=== PATIENT | male | born 1940 | race Caucasian/White ===

== ENCOUNTER 2018-01-02 17:14 | Inpatient (IN) | payer MEDICARE ==
[~2018-01-02] VITALS: Ht 177.8 cm; Wt 163.1 kg
[~2018-01-02 17:14] MED LIST: ACYC200 PO; ALBU90OI INH; BUDE10.22; DIPH50 PO; GABA600 PO; HYDCHL25 PO; LORA10 PO; LOSA50 PO; TAMS.4ER PO
[2018-01-02] MEDS ORDERED: MELA3 PO (17:33)
[2018-01-02] MEDS ORDERED: ASPI81CH PO (17:33)
[2018-01-02] MEDS ORDERED: TRAZ50 PO (17:33)
[2018-01-02 18:28] LABS: BASOPHILS ABSOLUTE AUTO 0.03 K/mm3 (0.00-0.23); BASOPHILS PERCENT AUTO 0 % (0-2); EOSINOPHILS ABSOLUTE AUTO 0.03 K/mm3 (0.00-0.68); EOSINOPHILS PERCENT AUTO 0 % (0-6); Hematocrit 41.6 % (37.0-53.0); Hemoglobin 14.8 g/dL (13.5-17.5); IMMATURE GRAN ABSOLUTE AUTO 0.08 K/mm3 (0.00-0.10); IMMATURE GRAN PERCENT AUTO 1 % (0-1); LYMPHOCYTES ABSOLUTE AUTO 1.97 K/mm3 (0.84-5.20); LYMPHOCYTES PERCENT AUTO 12 % (21-46); MONOCYTES ABSOLUTE AUTO 1.49 K/mm3 (0.16-1.47); MONOCYTES PERCENT AUTO 9 % (4-13); Mean Corpuscular HGB 32.2 pg (26.0-34.0); Mean Corpuscular HGB Conc 35.6 g/dL (31.5-36.5); Mean Corpuscular Volume 90 fL (80-100); Mean Platelet Volume 8.6 fL (9.1-12.4); NEUTROPHILS ABSOLUTE AUTO 12.42 K/mm3 (1.96-9.15); NEUTROPHILS PERCENT AUTO 78 % (41-73); Platelet Count 337 K/mm3 (150-400); RDW Coefficient Variation 13.1 % (11.7-14.2); RDW Standard Deviation 43.8 fL (35.1-46.3); White Blood Cell Count 16.02 K/mm3 (4.00-11.30)
[2018-01-02 18:42] LABS: Alanine Aminotransfer (ALT/SGP 26 U/L (12-78); Albumin, Blood 3.7 g/dL (3.4-5.0); Albumin/Globulin Ratio 0.9 (0.8-1.8); Alk Phos 64 U/L (50-136); Anion Gap 9 mmol/L (6-16); Aspartate Aminotrans (AST/SGOT 17 U/L (12-37); Bilirubin, Total 0.7 mg/dL (0.1-1.0); Blood Urea Nitrogen 18 mg/dL (8-24); Bun/Creatinine Ratio 19.5 (12.0-20.0); CO2, Blood 28 mmol/L (21-32); Chloride, Blood 101 mmol/L (98-108); Creatinine, Blood 0.92 mg/dL (0.60-1.20); Glomerular Filtration Rate >60 (60-); Glucose, Blood 140 mg/dL (70-99); Potassium, Blood 3.8 mmol/L (3.5-5.5); Sodium, Blood 138 mmol/L (136-145); Total Protein, Blood 7.7 g/dL (6.4-8.2)
[2018-01-02] MEDS ORDERED: Advil200 M1 PO (20:41)
[2018-01-02] MEDS ORDERED: ASCO500 PO (20:42)
[2018-01-02] MEDS ORDERED: MUCUS RELIEF C200 MG PO (20:43)
[2018-01-02] MEDS ORDERED: TRIPLE FLEX CA1 EACH PO (20:43)
[2018-01-03 04:27] LABS: BASOPHILS ABSOLUTE AUTO 0.02 K/mm3 (0.00-0.23); BASOPHILS PERCENT AUTO 0 % (0-2); EOSINOPHILS ABSOLUTE AUTO 0.01 K/mm3 (0.00-0.68); EOSINOPHILS PERCENT AUTO 0 % (0-6); Hematocrit 41.5 % (37.0-53.0); Hemoglobin 14.6 g/dL (13.5-17.5); IMMATURE GRAN ABSOLUTE AUTO 0.15 K/mm3 (0.00-0.10); IMMATURE GRAN PERCENT AUTO 1 % (0-1); LYMPHOCYTES ABSOLUTE AUTO 1.43 K/mm3 (0.84-5.20); LYMPHOCYTES PERCENT AUTO 8 % (21-46); MONOCYTES ABSOLUTE AUTO 1.87 K/mm3 (0.16-1.47); MONOCYTES PERCENT AUTO 10 % (4-13); Mean Corpuscular HGB 31.7 pg (26.0-34.0); Mean Corpuscular HGB Conc 35.2 g/dL (31.5-36.5); Mean Corpuscular Volume 90 fL (80-100); Mean Platelet Volume 8.8 fL (9.1-12.4); NEUTROPHILS ABSOLUTE AUTO 14.91 K/mm3 (1.96-9.15); NEUTROPHILS PERCENT AUTO 81 % (41-73); Platelet Count 327 K/mm3 (150-400); RDW Coefficient Variation 12.8 % (11.7-14.2); RDW Standard Deviation 42.5 fL (35.1-46.3); White Blood Cell Count 18.39 K/mm3 (4.00-11.30)
[2018-01-03 04:35] LABS: Anion Gap 9 mmol/L (6-16); Blood Urea Nitrogen 13 mg/dL (8-24); Bun/Creatinine Ratio 15.2 (12.0-20.0); CO2, Blood 27 mmol/L (21-32); Calcium, Blood 8.2 mg/dL (8.5-10.1); Chloride, Blood 101 mmol/L (98-108); Creatinine, Blood 0.85 mg/dL (0.60-1.20); Glomerular Filtration Rate >60 (60-); Glucose, Blood 150 mg/dL (70-99); Potassium, Blood 3.8 mmol/L (3.5-5.5); Sodium, Blood 137 mmol/L (136-145)
[2018-01-04 09:37] LABS: BASOPHILS ABSOLUTE AUTO 0.02 K/mm3 (0.00-0.23); BASOPHILS PERCENT AUTO 0 % (0-2); EOSINOPHILS ABSOLUTE AUTO 0.01 K/mm3 (0.00-0.68); EOSINOPHILS PERCENT AUTO 0 % (0-6); Hematocrit 36.2 % (37.0-53.0); Hemoglobin 12.7 g/dL (13.5-17.5); IMMATURE GRAN PERCENT AUTO 1 % (0-1); LYMPHOCYTES ABSOLUTE AUTO 1.83 K/mm3 (0.84-5.20); LYMPHOCYTES PERCENT AUTO 9 % (21-46); MONOCYTES ABSOLUTE AUTO 1.42 K/mm3 (0.16-1.47); MONOCYTES PERCENT AUTO 7 % (4-13); Mean Corpuscular HGB 31.9 pg (26.0-34.0); Mean Corpuscular HGB Conc 35.1 g/dL (31.5-36.5); Mean Corpuscular Volume 91 fL (80-100); Mean Platelet Volume 8.8 fL (9.1-12.4); NEUTROPHILS ABSOLUTE AUTO 17.49 K/mm3 (1.96-9.15); NEUTROPHILS PERCENT AUTO 83 % (41-73); Platelet Count 303 K/mm3 (150-400); RDW Coefficient Variation 13.2 % (11.7-14.2); RDW Standard Deviation 44.2 fL (35.1-46.3); Red Blood Cell Count 3.98 M/mm3 (4.30-5.90); White Blood Cell Count 20.97 K/mm3 (4.00-11.30)
[2018-01-04 10:02] LABS: Alanine Aminotransfer (ALT/SGP 121 U/L (12-78); Albumin, Blood 2.8 g/dL (3.4-5.0); Albumin/Globulin Ratio 0.8 (0.8-1.8); Alk Phos 90 U/L (50-136); Anion Gap 9 mmol/L (6-16); Aspartate Aminotrans (AST/SGOT 70 U/L (12-37); Bilirubin, Total 0.6 mg/dL (0.1-1.0); Blood Urea Nitrogen 18 mg/dL (8-24); Bun/Creatinine Ratio 20.7 (12.0-20.0); CO2, Blood 29 mmol/L (21-32); Chloride, Blood 99 mmol/L (98-108); Creatinine, Blood 0.87 mg/dL (0.60-1.20); Globulin, Blood 3.7 g/dL (2.2-4.0); Glomerular Filtration Rate >60 (60-); Glucose, Blood 122 mg/dL (70-99); Potassium, Blood 3.6 mmol/L (3.5-5.5); Sodium, Blood 137 mmol/L (136-145); Total Protein, Blood 6.5 g/dL (6.4-8.2)
[2018-01-05 11:08] LABS: BASOPHILS ABSOLUTE AUTO 0.02 K/mm3 (0.00-0.23); BASOPHILS PERCENT AUTO 0 % (0-2); EOSINOPHILS ABSOLUTE AUTO 0.06 K/mm3 (0.00-0.68); EOSINOPHILS PERCENT AUTO 1 % (0-6); Hematocrit 36.4 % (37.0-53.0); Hemoglobin 12.9 g/dL (13.5-17.5); IMMATURE GRAN ABSOLUTE AUTO 0.07 K/mm3 (0.00-0.10); IMMATURE GRAN PERCENT AUTO 1 % (0-1); LYMPHOCYTES ABSOLUTE AUTO 2.06 K/mm3 (0.84-5.20); LYMPHOCYTES PERCENT AUTO 17 % (21-46); MONOCYTES ABSOLUTE AUTO 0.99 K/mm3 (0.16-1.47); MONOCYTES PERCENT AUTO 8 % (4-13); Mean Corpuscular HGB 31.8 pg (26.0-34.0); Mean Corpuscular HGB Conc 35.4 g/dL (31.5-36.5); Mean Corpuscular Volume 90 fL (80-100); Mean Platelet Volume 8.6 fL (9.1-12.4); NEUTROPHILS ABSOLUTE AUTO 8.92 K/mm3 (1.96-9.15); NEUTROPHILS PERCENT AUTO 74 % (41-73); Platelet Count 309 K/mm3 (150-400); RDW Standard Deviation 42.8 fL (35.1-46.3); Red Blood Cell Count 4.06 M/mm3 (4.30-5.90); White Blood Cell Count 12.12 K/mm3 (4.00-11.30)
[2018-01-05 11:24] LABS: Alanine Aminotransfer (ALT/SGP 136 U/L (12-78); Albumin, Blood 2.8 g/dL (3.4-5.0); Albumin/Globulin Ratio 0.7 (0.8-1.8); Alk Phos 136 U/L (50-136); Anion Gap 9 mmol/L (6-16); Aspartate Aminotrans (AST/SGOT 92 U/L (12-37); Bilirubin, Total 0.5 mg/dL (0.1-1.0); Blood Urea Nitrogen 20 mg/dL (8-24); Bun/Creatinine Ratio 21.4 (12.0-20.0); CO2, Blood 28 mmol/L (21-32); Calcium, Blood 8.2 mg/dL (8.5-10.1); Chloride, Blood 102 mmol/L (98-108); Creatinine, Blood 0.94 mg/dL (0.60-1.20); Globulin, Blood 4.1 g/dL (2.2-4.0); Glomerular Filtration Rate >60 (60-); Glucose, Blood 136 mg/dL (70-99); Potassium, Blood 3.4 mmol/L (3.5-5.5); Sodium, Blood 139 mmol/L (136-145); Total Protein, Blood 6.9 g/dL (6.4-8.2)
[2018-01-06 03:55] LABS: BASOPHILS ABSOLUTE AUTO 0.04 K/mm3 (0.00-0.23); BASOPHILS PERCENT AUTO 0 % (0-2); EOSINOPHILS ABSOLUTE AUTO 0.26 K/mm3 (0.00-0.68); EOSINOPHILS PERCENT AUTO 2 % (0-6); Hemoglobin 12.9 g/dL (13.5-17.5); IMMATURE GRAN ABSOLUTE AUTO 0.07 K/mm3 (0.00-0.10); IMMATURE GRAN PERCENT AUTO 1 % (0-1); LYMPHOCYTES ABSOLUTE AUTO 2.29 K/mm3 (0.84-5.20); LYMPHOCYTES PERCENT AUTO 20 % (21-46); MONOCYTES ABSOLUTE AUTO 0.93 K/mm3 (0.16-1.47); MONOCYTES PERCENT AUTO 8 % (4-13); Mean Corpuscular HGB 31.5 pg (26.0-34.0); Mean Corpuscular HGB Conc 35.8 g/dL (31.5-36.5); Mean Corpuscular Volume 88 fL (80-100); Mean Platelet Volume 8.6 fL (9.1-12.4); NEUTROPHILS ABSOLUTE AUTO 7.61 K/mm3 (1.96-9.15); NEUTROPHILS PERCENT AUTO 68 % (41-73); Platelet Count 343 K/mm3 (150-400); RDW Standard Deviation 42.1 fL (35.1-46.3); Red Blood Cell Count 4.09 M/mm3 (4.30-5.90)
[2018-01-06 04:12] LABS: Anion Gap 8 mmol/L (6-16); Blood Urea Nitrogen 15 mg/dL (8-24); CO2, Blood 28 mmol/L (21-32); Calcium, Blood 8.5 mg/dL (8.5-10.1); Chloride, Blood 103 mmol/L (98-108); Creatinine, Blood 0.84 mg/dL (0.60-1.20); Glomerular Filtration Rate >60 (60-); Glucose, Blood 102 mg/dL (70-99); Potassium, Blood 3.5 mmol/L (3.5-5.5); Sodium, Blood 139 mmol/L (136-145)
== END 2018-01-06 14:13 | disposition home or self-care (01) | DRG 418 ==
LOC: ER 17:14 → SURS 17:15 → ER 18:54 → SURS 20:03
PROVIDERS: Internal Medicine; Nurse Practitioner Acute Care; Surgery
PROC: 0FT44ZZ Resection of Gallbladder, Percutaneous Endoscopic Approach (ICD-10-PCS; principal; 2018-01-02)
DX: K81.0 Acute cholecystitis (principal); K82.1 Hydrops of gallbladder; I10 Essential (primary) hypertension; J44.9 Chronic obstructive pulmonary disease, unspecified; N40.0 Benign prostatic hyperplasia without lower urinary tract symptoms; Z85.828 Personal history of other malignant neoplasm of skin; K21.9 Gastro-esophageal reflux disease without esophagitis; R33.9 Retention of urine, unspecified; N40.1 Benign prostatic hyperplasia with lower urinary tract symptoms
CPT/HCPCS: 36415; 71045; 80048; 80053; 83690; 85025; 88304; 93005; 93010; 94640; 94760; 96365; 96375; 99285; J0295; J1100; J1885; J2250; J2405; J2710; J3010; J7030; J7120; Q0163

== ENCOUNTER 2020-09-20 20:05 | Inpatient (IN) | payer OTHER, MEDICARE ==
[~2020-09-20] VITALS: Ht 177.8 cm; Wt 80.4 kg
[~2020-09-20 20:05] MED LIST changes: +ASCO500 PO; +ASPI81CH PO; +Advil200 M1 PO; +MELA3 PO; +MUCUS RELIEF C200 MG PO; +TRAZ50 PO; +TRIPLE FLEX CA1 EACH PO
[2020-09-20] MEDS ORDERED: FINA5 PO (20:41)
[2020-09-20] MEDS ORDERED: MOME.1TO (20:41)
[2020-09-20] MEDS ORDERED: LORA10ER PO (20:41)
[2020-09-20] MEDS ORDERED: TRIA15CR3 TOP (20:42)
[2020-09-20 20:50] LABS: BASOPHILS ABSOLUTE AUTO 0.04 K/mm3 (0.00-0.23); BASOPHILS PERCENT AUTO 0 % (0-2); EOSINOPHILS ABSOLUTE AUTO 0.24 K/mm3 (0.00-0.68); EOSINOPHILS PERCENT AUTO 2 % (0-6); IMMATURE GRAN ABSOLUTE AUTO 0.04 K/mm3 (0.00-0.10); IMMATURE GRAN PERCENT AUTO 0 % (0-1); LYMPHOCYTES PERCENT AUTO 24 % (21-46); MONOCYTES ABSOLUTE AUTO 0.94 K/mm3 (0.16-1.47); MONOCYTES PERCENT AUTO 10 % (4-13); Mean Corpuscular HGB 32.6 pg (26.0-34.0); Mean Corpuscular HGB Conc 35.9 g/dL (31.5-36.5); Mean Corpuscular Volume 91 fL (80-100); Mean Platelet Volume 8.9 fL (9.1-12.4); NEUTROPHILS ABSOLUTE AUTO 6.21 K/mm3 (1.96-9.15); NEUTROPHILS PERCENT AUTO 63 % (41-73); Platelet Count 309 K/mm3 (150-400); RDW Coefficient Variation 12.7 % (11.7-14.2); RDW Standard Deviation 41.8 fL (35.1-46.3); White Blood Cell Count 9.87 K/mm3 (4.00-11.30)
[2020-09-20 21:03] LABS: Alanine Aminotransfer (ALT/SGP 28 U/L (12-78); Albumin, Blood 3.6 g/dL (3.4-5.0); Albumin/Globulin Ratio 1.1 (0.8-1.8); Alk Phos 42 U/L (50-136); Anion Gap 8 mmol/L (6-16); Aspartate Aminotrans (AST/SGOT 22 U/L (12-37); Bilirubin, Total 0.5 mg/dL (0.1-1.0); Blood Urea Nitrogen 23 mg/dL (8-24); Bun/Creatinine Ratio 22.1 (12.0-20.0); CO2, Blood 29 mmol/L (21-32); Calcium, Blood 8.7 mg/dL (8.5-10.1); Chloride, Blood 105 mmol/L (98-108); Creatinine, Blood 1.04 mg/dL (0.60-1.20); Globulin, Blood 3.2 g/dL (2.2-4.0); Glomerular Filtration Rate >60 (60-); Glucose, Blood 130 mg/dL (70-99); Potassium, Blood 3.6 mmol/L (3.5-5.5); Sodium, Blood 142 mmol/L (136-145); Total Protein, Blood 6.8 g/dL (6.4-8.2); Troponin I <0.015 ng/mL (0.000-0.040)
[2020-09-20 21:05] LABS: International Normalized Ratio 1.09; Prothrombin Time Results 11.6 Sec (9.7-11.5)
--- NOTE | 2020-09-21 00:29 | NUR ---
PATIENT ARRIVED TO ICU 12 VIA GURNEY TRANSFER TO ICU BED USING SLIDER SHEET AND PLACED ON ICU MONITORS. NICARDIPINE DRIP STARTED WITH GOAL TO LOWER BP TO SBP 120'S. PATIENT C/O ABD CRAMPING AND BACK PAIN, MORPHINE IV GIVEN WITH SOME RELIEF. PATIENT ATTEMPT TO USE URINAL IN BED WITH NO RESULTS. PATIENT SOB WITH ACTIVITY. NOT ABLE TO KOBY LAYING FLAT FOR ANY LENGTH OF TIME. SCAB TO RIGHT CHEEK AND RIGHT HAND FROM LUMPS REMOVED LAST SUNDAY AT THE [place].
[2020-09-21 02:42] LABS: Source, Urine Voided
[2020-09-21 02:44] LABS: Bilirubin, Urine Neg (Neg); Blood, Urine Neg (Neg); Glucose Qualitative, Urine Neg (Neg); Ketones, Urine Neg (Neg); Leukocyte Esterase, Urine Neg (Neg); Nitrite, Urine Neg (Neg); Protein, Urine 1+ (Neg); Urobilinogen, Urine NORM (Normal); pH, Urine 6.5 (5.0-8.0)
[2020-09-21 03:02] LABS: Appearance, Urine Clear (Clear); Color, Urine Yellow (P-Yellow)
[2020-09-21 04:03] LABS: BASOPHILS ABSOLUTE AUTO 0.02 K/mm3 (0.00-0.23); BASOPHILS PERCENT AUTO 0 % (0-2); EOSINOPHILS PERCENT AUTO 0 % (0-6); Hematocrit 39.8 % (37.0-53.0); Hemoglobin 14.3 g/dL (13.5-17.5); IMMATURE GRAN ABSOLUTE AUTO 0.05 K/mm3 (0.00-0.10); IMMATURE GRAN PERCENT AUTO 0 % (0-1); LYMPHOCYTES ABSOLUTE AUTO 1.18 K/mm3 (0.84-5.20); LYMPHOCYTES PERCENT AUTO 8 % (21-46); MONOCYTES ABSOLUTE AUTO 1.16 K/mm3 (0.16-1.47); MONOCYTES PERCENT AUTO 7 % (4-13); Mean Corpuscular HGB 32.6 pg (26.0-34.0); Mean Corpuscular HGB Conc 35.9 g/dL (31.5-36.5); Mean Corpuscular Volume 91 fL (80-100); Mean Platelet Volume 8.6 fL (9.1-12.4); NEUTROPHILS PERCENT AUTO 85 % (41-73); Platelet Count 294 K/mm3 (150-400); RDW Coefficient Variation 12.6 % (11.7-14.2); RDW Standard Deviation 41.6 fL (35.1-46.3); Red Blood Cell Count 4.38 M/mm3 (4.30-5.90); White Blood Cell Count 15.71 K/mm3 (4.00-11.30)
[2020-09-21 04:22] LABS: Anion Gap 7 mmol/L (6-16); Blood Urea Nitrogen 24 mg/dL (8-24); CO2, Blood 28 mmol/L (21-32); Calcium, Blood 8.5 mg/dL (8.5-10.1); Chloride, Blood 104 mmol/L (98-108); Creatinine, Blood 0.96 mg/dL (0.60-1.20); Glomerular Filtration Rate >60 (60-); Glucose, Blood 152 mg/dL (70-99); Potassium, Blood 4.1 mmol/L (3.5-5.5); Sodium, Blood 139 mmol/L (136-145); Troponin I 0.295 ng/mL (0.000-0.040)
[2020-09-21] MEDS ORDERED: STIOLTO RESPIMAT4 G1 INH (04:40)
[2020-09-21] MEDS ORDERED: HORIZANT600 MG PO (04:44)
[2020-09-21] MEDS ORDERED: GUAI600T33 PO (04:45)
[2020-09-21] MEDS ORDERED: MAGNESIUM OXID500 MG PO (04:46)
[2020-09-21] MEDS ORDERED: ASMANEX HFA13 G4 INH (04:50)
[2020-09-21] MEDS ORDERED: LIDO700A20 TOP (04:51)
[2020-09-21] MEDS ORDERED: TRAZ50 PO (04:53)
[2020-09-21] MEDS ORDERED: DICLOFENAC SOD100 G1 (04:53)
--- NOTE | 2020-09-21 07:35 | NUR ---
SUMMARY PATIENT REMAINS ON NICARDIPINE 2 MG/HR. SITTING UP TO SIDE OF BED FREQUENTLY TO USE URINAL, VOIDING SMALL AMT OF YELLOW URINE. PATIENT INSISTENT ON NOT PLACING A ARCEO. PATIENT C/O LEFT ARM PAIN THIS MORNING VERBALIZED IV IN THAT ARM IS VERY PAINFUL. NEW SITE OBTAINED TO RIGHT UPPER ARM AND PAINFUL SITE REMOVED. PATIENT VERBALIZED THAT HE HAS A HISTORY OF PAIN TO HIS LEFT ELBOW. PLAN TO GET AN ORDER FOR ASPERCREME WHEN THE ONCOMING DOCTOR COMES IN.
[2020-09-21 09:11] LABS: Source, Urine Catheter
[2020-09-21 09:45] LABS: Appearance, Urine Clear (Clear); Bilirubin, Urine Neg (Neg); Blood, Urine Neg (Neg); Color, Urine Yellow (P-Yellow); Glucose Qualitative, Urine Neg (Neg); Ketones, Urine Neg (Neg); Leukocyte Esterase, Urine Neg (Neg); Nitrite, Urine Neg (Neg); Protein, Urine Neg (Neg); Urobilinogen, Urine NORM (Normal)
--- NOTE | 2020-09-21 10:04 | NUR ---
PT AWAKE IN BED THIS, ALERT AND ORIENTED X3. PT C/O INTERMIT. PAIN TO MID BACK 3-4/10, AND PAIN TO LEFT ELBOW. PT STATES PAIN IS TOLERABLE AT THIS TIME. PT ATTEMPTED SEVERAL TIMES TO VOID, UNABLE TO. DR DRAKE CALLED AND GIVEN FULL UPDATE ON PT. STRAIGHT CATH USED W OVER >400CC CLEAR YELLOW U/O; SAMPLE SENT TO LAB. PT ON NICARDIPINE GTT AT 2MG/HR FOR HYPERTENSION. GTT INCREASED TO 2.5MG W GOAL TO KEEP SBP AROUND 120. PT DENIES CHEST PAIN/PRESSURE. PT DENIES SOB WORSE THAN BASELINE. PT DESATURATES INTERMIT DOWN TO 84% WHILE WIDE AWAKE. 2L O2 PLACED ON PT, SATS NOW >90%. PT HAS HX OF COPD; LUNGS ARE CLEAR BUT VERY DIMINISHED T/O. PT HAS EDEMA TO RIGHT LEG THAT IS MORE SWOLLEN THAN LEFT, DOPPLER ORDERED AND COMPLETED; NEG FOR DVT. DR DRAKE AT BEDSIDE THIS AM, PLAN IS TO TRANSITION OFF OF NICARDIPINE TO PO MEDS, AWAITING ORDERS.
--- NOTE | 2020-09-21 11:03 | NUR ---
PT'S SON'S UPDATED VIA PHONE W PT'S PERMISSION. NICARDIPINE TITRATED UP TO 3MG/HR. BP LABILE. PT RESTING IN BED. C/O SORE THROAT D/T "DRYNESS CAUSED FROM MOUTH BREATHING AT NIGHT".
--- NOTE | 2020-09-21 14:08 | NUR ---
NORVASC AND LOPRESSOR PO STARTED, WILL TITRATE NICARDIPINE GTT DOWN TOLERATED; GOAL TO KEEP SBP AT OR BELOW 120
--- NOTE | 2020-09-21 15:24 | NUR ---
DR EMERY IS THE ACCEPTING MD AT [facility]; AWAITING FOR BED ASSIGNMENT. PT'S UPDATED W PT'S PERMISSION.
--- NOTE | 2020-09-21 16:35 | NUR ---
PT C/O VERY VAUGE DISCOMFORT TO CHEST THAT IS NOW GONE AND VAUGE DISCOMFORT TO BACK 09/22. MS 2MG GIVEN. SBP AROUND 120 W NICARDIPINE GTT AT 3MG/HR.
--- NOTE | 2020-09-21 19:49 | NUR ---
PATIENT UP TO RECLINER CHAIR WITH MIN ASSIST. NICARDIPINE DRIP 3 MG/HR CONTINUES FOR BLOOD PRESSURE CONTROL. PATIENT VERBALIZED BACK PAIN BETTER IN CHAIR. VOIDING SMALL AMT YELLOW URINE, C/O SLIGHT BURN WITH URINATION AFTER ARCEO CATH REMOVED EARLIER TODAY.
--- NOTE | 2020-09-21 22:35 | NUR ---
PATIENT FEELING RESTLESS, MELATONIN AND TYLENOL GIVEN, AND BACK RUB WITH ASPERCREME GIVEN.
--- NOTE | 2020-09-21 23:04 | NUR ---
PATIENT CONTINUES TO FEEL RESTLESS WITH BACK PAIN. MORPHINE GIVEN FOR PAIN.
--- NOTE | 2020-09-21 23:39 | NUR ---
HYPOTENSIVE, PATIENT SLEEPING ON RIGHT SIDE, AWAKENS TO SLIGHT STIMULI. VERBALIZED THAT HE IS FEELING COMFORTABLE. NICARDIPINE REMAINS OFF. WILL CONTINUE TO MONITOR BP CLOSELY
--- NOTE | 2020-09-22 06:03 | NUR ---
SUMMARY PATIENT SLEEPING OFF AND ON T/O NIGHT, SLIGHTLY CONFUSED WHEN FIRST AWAKENS, REORIENT EASILY. NICARDIPINE OFF AT 2312. PATIENT CONTINUES TO VOID FREQUENT SMALL AMOUNTS OF URINE. CONTINUES TO BE SOB WITH AUDIBLE WHEEZES WITH ACTIVITY, 2L/NC IN PLACE
--- NOTE | 2020-09-22 07:15 | NUR ---
Assumed care of pt at 0700. Bedside report received from Marimar SANCHEZ. Pt A&O x 4. Answers questions. Follows commands. Verbalizes needs. Pt pleasant and cooperative with care. Pt states pain to left shoulder. Requests aspercreme. Aspercreme applied to left shoulder. Plan to give morphine if aspercreme does not control pain. Pt on 2 LPM NC. SpO2 90% or greater. Lungs clear t/o. SR-ST per monitor. BP elevated. Plan to achieve pain control and see if this helps improve blood pressure. Bed in lwoest position. Call light in reach. Pt denies need at this time.
--- NOTE | 2020-09-22 08:00 | NUR ---
Dr Wolff at bedside. Discussed BP. Plan to increase PO metoprolol from 12.5 mg to 25 mg. Provider states pt is appropriate for PCU status.
--- NOTE | 2020-09-22 12:05 | NUR ---
Pt had a mild nosebleed. Humidification added to NC. BP remains above target systolic BP of 120 despite PO blood pressure medication, pain control, and IV labetalol. Call placed to Dr Wolff. Plan to give additional 5 mg amlodipine.
--- NOTE | 2020-09-22 15:12 | NUR ---
Pt visiting with his oldest son, Blayne. Update provided. Pt and visitor deny need at this time.
--- NOTE | 2020-09-22 15:34 | NUR ---
Call placed to Dr Wolff to notify of blood pressure. Plan to start PO hydralyzine.
--- NOTE | 2020-09-22 16:00 | NUR ---
Dr Wolff in room, routinely rounding on patient. Provided update to pt's son. Plan to monitor pt with currently ordered medications, provider will hold off on making additional adjustments until tomorrow morning. Provider discusses code status with family. Pt and family plan to meet and discuss. Pt remains on 2 LPM NC. SR per monitor. BP 140-150. Plan for pt to transfer to PCU 15.
--- NOTE | 2020-09-22 16:45 | NUR ---
Pt transferred to PCU 15. Report given to Jazlyn SANCHEZ. Arrived to new room via bed accompanied by this RN. Chart, medications, and belongings transferred with patient.
--- NOTE | 2020-09-22 17:03 | NUR ---
Pleasantly conversant, cheerful gentleman arrived from ICU in bed, stood to transfer to the bed in PCU 15. Son Blayne was accompanying him. Exception to visitation made per rn charge for all of the pt's sons to come to the room for a family meeting with palliative care RN Abelino Cain to discuss code status. Sons Blayne, Dayne and Abdulaziz are here now. Pt is on 2 l /min oxygen, and is moderately dyspneic with standing and taking a couple of steps to the bed. Recovers with rest after minutes. States that this has been usual for him for the past 2 years, but that he does not wear oxygen at home. vital signs taken, blood pressure noted slightly higher than it was just before transfer from icu12. Sinus rhythm per monitor technician mahco Payan
--- NOTE | 2020-09-22 17:30 | NUR ---
Receieved call from Bedside RN Jazlyn reporting Pt and family would like to have further discussion regarding code status. Pt sitting on edge of bed upon arrival. Pt's 3 sons are at bedside. Assisted family with repositioning Pt in bed. Engaged in therapeutic discussion regarding code status. Educated on life sustaining measures of CPR including risk factors and implications. Answered questions and listened to concerns. Pt and family express appreciation and report they would like to discuss further before making a decision. Ended visit to allow Pt and family to visit. Palliative Care will remain available.
--- NOTE | 2020-09-22 18:05 | NUR ---
Spiritual care note: I met with this allen man this morning. He is non-zoroastrianism, but appeared to enjoy conversation and encouragement. He spoke at length about his marriages and expressed enormous pride in his 3 sons. He appears to understand "I could go at anytime." When asked about full code status, he said, "Well I would want them to try--once." He also stated that he would'nt "want anything traumatic and bloody" however. I gently explained how this was inconsistent with neccessary CPR and his current condition. He would like to speak to his sons about this. We had an easy rapport and Benedict expressed appreciation for companionship/vocational rehabilitation counselor. I will remain available.
--- NOTE | 2020-09-22 23:55 | NUR ---
UPDATE PATIENT REQUESTING SOMETHING FOR SLEEP TONIGHT STATING HE NEEDS SOMETHING STRONGER THAN MELATONIN. NURSE PRACTIONER [place] NOTIFIED AND ORDERED BENADRYL. PATIENT STATED HE USUALLY TAKES BENADRYL AND TRAZADONE AT HOME AND THEY DO NOT HELP. KJ DELAROSA THEN ORDERED ZYPREXA.
--- NOTE | 2020-09-23 03:53 | NUR ---
UPDATE AT APPROX 0250 PATIENT WOKE UP ACTING VERY FORGETFUL AND CONFUSED. PATIENT VERY IMPULSIVE AND DROPING THINGS AT THIS TIME. PATIENT REORIENTED HOWEVER PATIENT CONTINUES TO BE VERY FORGETFUL TRYING TO REMOVE BLOOD PRESSURE CUFF WHILE VITALS WERE BEING DONE AND TRYING TO REMOVE HIS GOWN. BED ALARM ON FOR SAFETY AT THIS TIME.
--- NOTE | 2020-09-23 06:37 | NUR ---
SHIFT SUMMARY PATIENT APPEARED TO SLEEP OFF AND ON FOR SEVERAL HOURS AFTER SLEEPING AID WAS GIVEN. AT APPROX 0500 PATIENT STARTED TO APPEAR MORE ALERT AND ORIENTED AGAIN AND HE STATED, "I THINK I SLEPT FOR AT LEAST FIVE HOURS." PATIENT CONTINUES TO TAKE SHORT NAPS THIS MORNING. BLOOD PRESSURE MEDICATIONS GIVEN PER EMAR, VITAL SIGNS CHARTED. PATIENT MEDICATED FOR PAIN PER EMAR. PATIENT APPEARS TO BE ABLE TO TURN SELF ABOUT IN BED. WILL CONTINUE CURRENT PLAN OF CARE AND REPORT TO ONCOMING RN.
--- NOTE | 2020-09-23 09:56 | NUR ---
Blood pressure noted elevated at time of oral med administration; given IV labetolol initially and improved to 156 systolic, will continue to check as oral medications take effect.
--- NOTE | 2020-09-23 12:11 | NUR ---
Call to Dr Wolff regarding high blood pressure; new order for metoprolol dose increase rec'd and administered to pt.
--- NOTE | 2020-09-23 12:21 | NUR ---
C/O constantly feeling like he needs to pee, but only voiding small (100 cc) amounts at a time. Bladder scan done post void . Residual 650 cc.
--- NOTE | 2020-09-23 13:21 | NUR ---
straight cath done x 1, 600 cc urine evacuated. Pt states feels better. Urine clear, yellow, no foul odor. Medicated for lower back pain with NOrco 1 tab, Aspercreme. Scheduled meds also given. Blood pressure noted much better at this time. Pt lying on left side, states wants to rest until his son gets here this afternoon.
--- NOTE | 2020-09-23 16:20 | NUR ---
Complaining of pain in his shoulder blades, heating pad applied for comfort. Aspercreme used earlier this afternoon for relief of pain in lower back, and NOrco also given around 1330 for pain relief, both of which he said helped. His pain seems to be migratory, constant but in different locations. Sons are here now, discussing papers which they are completing for POLST and also for advanced directive. Palliative care following with pt and his family.
--- NOTE | 2020-09-23 16:32 | NUR ---
Family has arrived and Pt is requesting to complete an advanced directive. Educated on advaned directive including life sustaining measures and each section to complete. Educated on the importance of considering a healthcare operations representative. Pt and family expresses appreciation and reports no other concerns at this time. Spoke with Lubrication Supervisorvasquez Luu regarding notary. Palliative Care will remain available.
--- NOTE | 2020-09-23 17:19 | NUR ---
Spiritual care note: Advanced Directive completed, notarized, copies made. Mr. Modi does not want CPR. But he would like intubation, medications, and "shock me if my heart stops." His 3 sons and DIL were present. They appear loving and supportive. POLST also completed and awaiting physician signature. Pt wishes to go home adrian. I will remain available.
[2020-09-23 18:49] LABS: Source, Urine Catheter
[2020-09-23 18:51] LABS: Appearance, Urine Clear (Clear); Bilirubin, Urine Neg (Neg); Blood, Urine Neg (Neg); Color, Urine Yellow (P-Yellow); Glucose Qualitative, Urine Neg (Neg); Ketones, Urine 2+ (Neg); Leukocyte Esterase, Urine Neg (Neg); Nitrite, Urine Neg (Neg); Protein, Urine 1+ (Neg); Urobilinogen, Urine NORM (Normal)
--- NOTE | 2020-09-23 19:25 | NUR ---
Spoke with pt this evening regarding post void residual of 300 cc on bladder scan, and ongoing need for catheterization. PT's sons are in room as well, and they said that the pt had been discharged in the past from the hospital with a Spencer, but it was discontinued by urologist in out pt setting 23 days after discharge. Pt has been followed by urologist in [place] but has not needed a catheter again to his knowledge. Pt and family agreed to Spencer catheterization this evening, which was placed using a 14 Fr coude. Pt tolerated it well.
--- NOTE | 2020-09-24 04:35 | NUR ---
SUMMARY NO ACUTE EVENTS NOTED. PT SLEPT OFF AND ON. PT BACK PAIN TX PER EMAR W/ GOOD RELIEF. PT CURRENTLY SLEEPING AND IN NO DISTRESS. CALL LIGHT IN REACH.
--- NOTE | 2020-09-24 15:13 | NUR ---
Follow up Pal Care visit to pt. He seemed sl confused and reported feeling sl confused as to time of day and thoughts, sitting at edge of bed "waking up". I oriented pt to time of day and he could participate in meaningful conversation. Opened blinds so he could more clearly see that it was afternoon and not still night time. Pt's pulse oximeter beeping and showing sats <90%. Pt did well with coaching of pursed lip breathing and was able to bring sats up to 92-93% on 2L via NC. I introduced myself and had nice visit with pt re: sons, his AD and POLST. I found POLST completed by pt and signed by the Dr. I reviewed with pt and confirmed that he does not want CPR but is ok with intubation, medications and shock if indicated. Copies made and sent to medical records. Original given to pt with instruction to place in visible spot at home like refrigerator. He verbalized understanding. Pt states he has chronic back pain and it is bothering him now. Requested tylenol for him prn per eMAR. Pt states he uses tylenol at home with fair improvement of s/s. Back rub provided and pt was very appreciative of that. I replaced soiled delacruz pad and assisted pt with getting positioned higher up in bed per his request. He also requested yuridia milk and water, which PAPER DELIVERER obtained for him. Pt is very pleasant, appreciative and insightful re: current health issues. He states one son lives with him, one lives in [place] and another in [place]. He is pleased that all three were here to visit this week and is feeling supported and loved. Pal Care will remain available for supportive visits as needed.
--- NOTE | 2020-09-24 18:02 | NUR ---
SHIFT SUMMARY PT A/O X4; PLEASANT AND COOPERATIVE WITH CARE. NO ACUTE CHANGES THIS SHIFT. GOAL IS TO KEEP SBP <120 AND THE PATIENT HAS MET THIS GOAL THIS SHIFT. MEDICATED FOR BACK PAIN X2. ARCEO IN PLACE, PATENT AND DRAINING. VSS; RESTING COMFORTABLY WITH CALL LIGHT IN REACH.
--- NOTE | 2020-09-25 04:09 | NUR ---
SHIFT SUMMARY ASSUMED CARE OF PT AT 1900. PT IS A/OX4. HEART SOUNDS REGULAR, LUNG SOUNDS ARE DIMINISHED WITH AUDIBLE WHEEZING WITH ACTIVITY OR WHEN SLEEPING. PT WAS ON 2L NC T/O THE NIGHT. PT HAS PRODUCTIVE COUGH WITH YELLOW PHLEM. PT SNORES LOUDLY AND WHEEZES WHEN SLEEPING, PT MIGHT POSSIBBLY HAVE SLEEP APNEA. PT HAD A HARD TIME SLEEPING, HE AWOKE AROUND 0230 AND WAS NOT ABLE TO GET BACK TO SLEEP TILL 0400. PT HAS ARCEO, DRAINING WITH GRAVITY. CALL LIGHT IN REACH, BED IN LOWEST POSTION.
--- NOTE | 2020-09-25 08:00 | NUR ---
pt sitting on the side of the bed eating breakfast, a/ox3, but is forgetful, follows commands well, reports back pain that is chronic, lungs are clear in upper lazo, dim in bases, resp even and unlabored, is currently on 2 liters 02 via n/c, resp even and unlaobred, no cough noted, hrr, tele in place running sr per monitor, see strip, 1+edema noted to b/l le, ppp+1, cap refill <3sec, v.s. stable, afebrile, iv site is clear and patent, btx4, abd flat soft nontender, voids via staley cath at this time, clear gabriel urine, skin has a scabbed area to the top the right hand, this was cleansed antibiotic oint applied and dressing applied, otherwise c/w/d, lili, one person assist, mickey, call light in reach.
--- NOTE | 2020-09-25 13:30 | NUR ---
pt sits up on the side of the bed periodically, no complaints or needs at this time, call light in reach.
--- NOTE | 2020-09-25 18:23 | NUR ---
PT SAT IN A RECLINER CHAIR FOR THE SECOND HALF OF THE DAY, DOING OK, BACK IS PAINFUL. NO ACUTE CHANGES OR COMPLAINTS. CALL LIGHT IN REACH.
--- NOTE | 2020-09-26 05:59 | NUR ---
SHIFT SUMMARY ASSUMED CARE OF PT AT 1900. PT IS A/OX4. HEART SOUNDS REGULAR, TELE SHOWS SINUS TACH. LUNG SOUND ARE DIMINISHED WITH CRACKLES, PT IS ON 2L NC. PT COUGHED UP THICK YELLOW SPUTUM, SCULTURE SENT TO LAB. PT HAS A ARCEO DRAINING WITH GRAVITY. PT IS INDEPENDENT IN ROOM. PT C/O BACK PAIN, MEDICATED PER EMAR. PT WAS NOT ABLE TO SLEEP WELL THIS EVENING. PT BP WAS 140 SYSTOLIC, LABETALOL AND BP CAME DOWN TO 128 SYSTOLIC, NOTIFIED CHARGE NURSE AND SAID TO WAIT A LITTLE LONGER TO SEE IF MEDICATION WORKS BUT IT IS ACCETABLE FOR NOW. CALL LIGHT IN REACH, BED IN LOWEST POSITON.
--- NOTE | 2020-09-26 17:40 | NUR ---
SHIFT SUMMARY PATIENT ALERT AND ORIENTED THIS SHIFT. PATIENT SBA IN THE ROOM. PATIENT REMAINS ON 2L O2. HOME O2 EVALUATION COMPLETE THIS SHIFT, NO O2 NEEDS, PATIENT STATES HE FEELS MORE COMFORTABLE WITH THE O2. 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 PATIENT'S SON IN THE ROOM VISITING THIS AFTERNOON. ARCEO CATHETER REMOVED THIS AFTERNOON. PATIENT URINATED 1X AFTER REMOVAL. PATIENT CURRENTLY SITTING UP IN BED SLEEPING.
--- NOTE | 2020-09-27 04:32 | NUR ---
SHIFT SUMMARY ASSUMED CARE OF PT AT 1900. PT IS A/OX4. HEART SOUNDS REGULAR, LUNG SOUNDS DIMINISHED. PT ON 2L NC. PT USED URINAL T/O THE NIGHT. BLADDER SCAN POST VOID SHOWED 25ML. URINE IS DARK. PT C/O BACK PAIN, MEDICATED PER EMAR. PT BP WAS HIGH INITALLY BEFORE EVENING MEDICATIONS AND HAS BEEN STABLE T/O THE NIGHT. CALL LIGHT IN REACH, BED IN LOWEST POSTION.
[2020-09-27] MEDS ORDERED: ATOR40TA PO (11:32)
[2020-09-27] MEDS ORDERED: AMLO10 PO (11:32)
[2020-09-27] MEDS ORDERED: ASPI81CH PO (11:32)
[2020-09-27] MEDS ORDERED: FLUTICASONE-SA1 EAC1 INH (11:33)
[2020-09-27] MEDS ORDERED: BENMENLOZ MT (11:33)
[2020-09-27] MEDS ORDERED: APRESOLINE PO (11:35)
[2020-09-27] MEDS ORDERED: METOPROLOL TART PO (11:36)
--- NOTE | 2020-09-27 12:30 | NUR ---
DISCHARGE PT DISCHARGE INSTRUCTIONS, MEDICATION LIST AND FOLLOW UP APPOINTMENT REVIEWED WITH PT AND TWO SONS. QUESTIONS/CONCERNS ANSWERED. TELE BOX REMOVED AND RETURNED TO TELE MONIOTOR. PT DISCHARGED VIA W/C BY VOLUNTER.
== END 2020-09-27 12:29 | disposition home or self-care (01) | DRG 301 ==
LOC: ER 20:05 → PCU 23:29 → ICUW 23:29 → PCU 09-22 16:42
PROVIDERS: Emergency Medicine; Internal Medicine; Nurse Practitioner Acute Care; ADMIT Internal Medicine
DX: I71.9 Aortic aneurysm of unspecified site, without rupture (principal); F43.10 Post-traumatic stress disorder, unspecified; J44.9 Chronic obstructive pulmonary disease, unspecified; I10 Essential (primary) hypertension; K21.9 Gastro-esophageal reflux disease without esophagitis; G40.909 Epilepsy, unspecified, not intractable, without status epilepticus; A60.00 Herpesviral infection of urogenital system, unspecified; I25.10 Atherosclerotic heart disease of native coronary artery without angina pectoris; L57.0 Actinic keratosis; N40.1 Benign prostatic hyperplasia with lower urinary tract symptoms; R33.8 Other retention of urine; M54.5 Low back pain; G89.29 Other chronic pain; R91.1 Solitary pulmonary nodule; E78.5 Hyperlipidemia, unspecified; Z85.828 Personal history of other malignant neoplasm of skin; Z85.46 Personal history of malignant neoplasm of prostate; Z90.49 Acquired absence of other specified parts of digestive tract; Z98.890 Other specified postprocedural states; Z87.891 Personal history of nicotine dependence; Z88.8 Allergy status to other drugs, medicaments and biological substances; Z79.82 Long term (current) use of aspirin; Z79.899 Other long term (current) drug therapy
CPT/HCPCS: 36415; 51703; 71260; 80048; 80053; 81003; 83880; 84484; 85025; 85610; 85730; 87070; 87205; 93005; 93010; 93306; 93970; 94640; 94760; 94761; 94762; 96374-59; 96375-59; 97162; 97165; 97530; 97535; 99285-25; A9270; J2270; J2405; J7050; Q9967

== ENCOUNTER 2022-05-01 23:02 | Emergency (ER) | payer OTHER ==
[~2022-05-01] VITALS: Ht 170.2 cm; Wt 73.9 kg
[~2022-05-01 23:02] MED LIST changes: +AMLO10 PO; +APRESOLINE PO; +ASMANEX HFA13 G4 INH; +ATOR40TA PO; +BENMENLOZ MT; +DICLOFENAC SOD100 G1; +FINA5 PO; +FLUTICASONE-SA1 EAC1 INH; +GUAI600T33 PO; +HORIZANT600 MG PO; +LIDO700A20 TOP; +LORA10ER PO; +MAGNESIUM OXID500 MG PO; +METOPROLOL TART PO; +MOME.1TO; +STIOLTO RESPIMAT4 G1 INH; +TRIA15CR3 TOP
== END 2022-05-02 01:20 | disposition home or self-care (01) ==
LOC: ER 23:02
DX: S00.83XA Contusion of other part of head, initial encounter (principal); S60.022A Contusion of left index finger without damage to nail, initial encounter; S60.032A Contusion of left middle finger without damage to nail, initial encounter; J44.9 Chronic obstructive pulmonary disease, unspecified; G40.909 Epilepsy, unspecified, not intractable, without status epilepticus; I10 Essential (primary) hypertension; K21.9 Gastro-esophageal reflux disease without esophagitis; E78.5 Hyperlipidemia, unspecified; Z88.8 Allergy status to other drugs, medicaments and biological substances; Z79.899 Other long term (current) drug therapy; Z79.82 Long term (current) use of aspirin; Z87.891 Personal history of nicotine dependence; W22.8XXA Striking against or struck by other objects, initial encounter
CPT/HCPCS: 70450; 73130; 99284-25

== ENCOUNTER 2023-05-26 06:59 | Emergency (ER) | payer OTHER ==
[~2023-05-26] VITALS: Ht 170.2 cm; Wt 79.4 kg
[2023-05-26 07:48] LABS: BASOPHILS ABSOLUTE AUTO 0.02 K/mm3 (0.00-0.23); BASOPHILS PERCENT AUTO 0 % (0-2); EOSINOPHILS PERCENT AUTO 1 % (0-6); Hematocrit 37.6 % (37.0-53.0); IMMATURE GRAN ABSOLUTE AUTO 0.04 K/mm3 (0.00-0.10); IMMATURE GRAN PERCENT AUTO 0 % (0-1); LYMPHOCYTES ABSOLUTE AUTO 0.82 K/mm3 (0.84-5.20); LYMPHOCYTES PERCENT AUTO 6 % (21-46); MONOCYTES ABSOLUTE AUTO 1.06 K/mm3 (0.16-1.47); MONOCYTES PERCENT AUTO 8 % (4-13); Mean Corpuscular HGB 33.1 pg (26.0-34.0); Mean Corpuscular HGB Conc 37.2 g/dL (31.5-36.5); Mean Corpuscular Volume 89 fL (80-100); Mean Platelet Volume 8.6 fL (9.1-12.4); NEUTROPHILS ABSOLUTE AUTO 11.37 K/mm3 (1.96-9.15); NEUTROPHILS PERCENT AUTO 85 % (41-73); Platelet Count 333 K/mm3 (150-400); RDW Coefficient Variation 12.7 % (11.7-14.2); RDW Standard Deviation 41.3 fL (35.1-46.3); Red Blood Cell Count 4.23 M/mm3 (4.30-5.90); White Blood Cell Count 13.41 K/mm3 (4.00-11.30)
[2023-05-26 08:08] LABS: Source, Urine Clean Catch
[2023-05-26 08:15] LABS: Albumin, Blood 3.6 g/dL (3.4-5.0); Albumin/Globulin Ratio 0.9 (0.8-1.8); Globulin, Blood 3.9 g/dL (2.2-4.0); Potassium, Blood 2.8 mmol/L (3.5-5.5); Total Protein, Blood 7.5 g/dL (6.4-8.2)
[2023-05-26 08:30] LABS: Influenza A, PCR NEGATIVE (NEGATIVE); Influenza B, PCR NEGATIVE (NEGATIVE); Resp Syncytial Virus, PCR NEGATIVE (NEGATIVE)
[2023-05-26 08:36] LABS: Appearance, Urine Hazy (Clear); Bilirubin, Urine Neg (Neg); Blood, Urine 2+ (Neg); Color, Urine Yellow (P-Yellow); Glucose Qualitative, Urine Neg (Neg); Ketones, Urine 4+ (Neg); Leukocyte Esterase, Urine Neg (Neg); Nitrite, Urine Neg (Neg); Protein, Urine 2+ (Neg); Urobilinogen, Urine NORM (Normal)
[2023-05-26 08:40] LABS: SARS-Cov-2 (COVID-19) PCR, MMC POSITIVE (NEGATIVE)
[2023-05-26 10:30] LABS: Bacteria Few /hpf; Mucus Light (0-Heavy); Red Blood Cells, Urine 0-2 /hpf (0-2); Squamous Epithelial Cells Few /hpf (Few); White Blood Cells, Urine 0-2 /hpf (0-5)
[2023-05-26 14:45] VITALS: BP 142/74
== END 2023-05-26 14:57 | disposition home or self-care (01) ==
LOC: ER 06:59
PROVIDERS: Emergency Medicine
DX: R10.9 Unspecified abdominal pain (principal); R39.198 Other difficulties with micturition; U07.1 COVID-19; M54.9 Dorsalgia, unspecified; G89.29 Other chronic pain; I10 Essential (primary) hypertension; J44.9 Chronic obstructive pulmonary disease, unspecified; E78.5 Hyperlipidemia, unspecified; Z88.8 Allergy status to other drugs, medicaments and biological substances; Z79.899 Other long term (current) drug therapy; Z79.51 Long term (current) use of inhaled steroids; Z87.891 Personal history of nicotine dependence
CPT/HCPCS: 0241U; 51701; 51798; 74177; 80053; 81001; 83735; 85025; 96361; 96374; 99285-25; A9270; J1170; J7030; J7120; Q9967

== ENCOUNTER 2024-01-21 22:52 | Emergency (ER) | payer OTHER ==
[~2024-01-21] VITALS: Ht 170.2 cm; Wt 74.8 kg
[2024-01-21 23:31] LABS: BASOPHILS ABSOLUTE AUTO 0.03 K/mm3 (0.00-0.23); BASOPHILS PERCENT AUTO 0 % (0-2); EOSINOPHILS ABSOLUTE AUTO 0.18 K/mm3 (0.00-0.68); EOSINOPHILS PERCENT AUTO 2 % (0-6); Hematocrit 39.9 % (37.0-53.0); Hemoglobin 14.1 g/dL (13.5-17.5); IMMATURE GRAN ABSOLUTE AUTO 0.01 K/mm3 (0.00-0.10); IMMATURE GRAN PERCENT AUTO 0 % (0-1); LYMPHOCYTES ABSOLUTE AUTO 1.51 K/mm3 (0.84-5.20); LYMPHOCYTES PERCENT AUTO 20 % (21-46); MONOCYTES ABSOLUTE AUTO 0.74 K/mm3 (0.16-1.47); MONOCYTES PERCENT AUTO 10 % (4-13); Mean Corpuscular HGB 32.6 pg (26.0-34.0); Mean Corpuscular HGB Conc 35.3 g/dL (31.5-36.5); Mean Corpuscular Volume 92 fL (80-100); Mean Platelet Volume 8.7 fL (9.1-12.4); NEUTROPHILS PERCENT AUTO 67 % (41-73); Platelet Count 302 K/mm3 (150-400); RDW Coefficient Variation 12.5 % (11.7-14.2); RDW Standard Deviation 42.6 fL (35.1-46.3); Red Blood Cell Count 4.32 M/mm3 (4.30-5.90); White Blood Cell Count 7.47 K/mm3 (4.00-11.30)
[2024-01-21 23:52] LABS: Albumin, Blood 3.7 g/dL (3.4-5.0); Albumin/Globulin Ratio 1.2 (0.8-1.8); Bilirubin, Total 0.4 mg/dL (0.1-1.0); Bun/Creatinine Ratio 17.2 (12.0-20.0); Calcium, Blood 8.8 mg/dL (8.5-10.1); Creatinine, Blood 0.93 mg/dL (0.60-1.20); Globulin, Blood 3.2 g/dL (2.2-4.0); Potassium, Blood 3.4 mmol/L (3.5-5.5); Total Protein, Blood 6.9 g/dL (6.4-8.2)
[2024-01-22] MEDS ORDERED: ALMACONE SUSPE355 ML PO (04:46)
[2024-01-22 05:30] VITALS: BP 174/81
== END 2024-01-22 05:45 | disposition home or self-care (01) ==
LOC: ER 22:52
PROVIDERS: Emergency Medicine
DX: K21.9 Gastro-esophageal reflux disease without esophagitis (principal); F43.10 Post-traumatic stress disorder, unspecified; J44.9 Chronic obstructive pulmonary disease, unspecified; I10 Essential (primary) hypertension; E78.5 Hyperlipidemia, unspecified; Z87.891 Personal history of nicotine dependence; Z79.51 Long term (current) use of inhaled steroids; Z79.899 Other long term (current) drug therapy; Z88.8 Allergy status to other drugs, medicaments and biological substances
CPT/HCPCS: 71046; 71275; 80053; 84484; 85025; Q9967

== ENCOUNTER 2024-06-10 09:29 | Observation (INO) | payer OTHER ==
[~2024-06-10] VITALS: Ht 170.2 cm; Wt 72.8 kg
[~2024-06-10 09:29] MED LIST changes: +ALMACONE SUSPE355 ML PO
[2024-06-10 09:51] LABS: BASOPHILS ABSOLUTE AUTO 0.04 K/mm3 (0.00-0.23); BASOPHILS PERCENT AUTO 1 % (0-2); EOSINOPHILS ABSOLUTE AUTO 0.33 K/mm3 (0.00-0.68); EOSINOPHILS PERCENT AUTO 5 % (0-6); Hemoglobin 13.5 g/dL (13.5-17.5); IMMATURE GRAN ABSOLUTE AUTO 0.02 K/mm3 (0.00-0.10); IMMATURE GRAN PERCENT AUTO 0 % (0-1); LYMPHOCYTES ABSOLUTE AUTO 1.48 K/mm3 (0.84-5.20); LYMPHOCYTES PERCENT AUTO 21 % (21-46); MONOCYTES ABSOLUTE AUTO 0.69 K/mm3 (0.16-1.47); MONOCYTES PERCENT AUTO 10 % (4-13); Mean Corpuscular HGB 33.4 pg (26.0-34.0); Mean Corpuscular HGB Conc 35.5 g/dL (31.5-36.5); Mean Corpuscular Volume 94 fL (80-100); Mean Platelet Volume 8.6 fL (9.1-12.4); NEUTROPHILS ABSOLUTE AUTO 4.34 K/mm3 (1.96-9.15); NEUTROPHILS PERCENT AUTO 63 % (41-73); Platelet Count 279 K/mm3 (150-400); RDW Coefficient Variation 13.4 % (11.7-14.2); RDW Standard Deviation 46.2 fL (35.1-46.3); Red Blood Cell Count 4.04 M/mm3 (4.30-5.90)
[2024-06-10] MEDS ORDERED: Nitroglycerin 1 INCH/GM PKT TOP ONE (10:10)
[2024-06-10 10:14] LABS: Albumin, Blood 3.3 g/dL (3.4-5.0); Albumin/Globulin Ratio 1.1 (0.8-1.8); Bilirubin, Total 0.4 mg/dL (0.1-1.0); Calcium, Blood 9.1 mg/dL (8.5-10.1); Creatinine, Blood 0.95 mg/dL (0.60-1.20); Globulin, Blood 2.9 g/dL (2.2-4.0); Potassium, Blood 3.6 mmol/L (3.5-5.5); Total Protein, Blood 6.2 g/dL (6.4-8.2)
[2024-06-10] MEDS ORDERED: FLU VACC TS2024-25(6MOS UP)/PF 45 MCG/0.5 ML SYRINGE IM SCH (11:30)
[2024-06-10 13:00] VITALS: BP 172/77
[2024-06-10] MEDS ORDERED: CefTRIAXone Sodium 1,000 MG in NS 100 ML IV SCH (13:23)
[2024-06-10 13:32] VITALS: BP 153/78
[2024-06-10] MEDS ORDERED: Aspirin 81 MG Chew PO SCH (14:00)
[2024-06-10] MEDS ORDERED: Azithromycin 250 MG Tab PO SCH (14:00)
[2024-06-10] MEDS ORDERED: Furosemide 10 MG / ML 2ML Vial IV SCH (14:00)
--- NOTE | 2024-06-10 16:31 | NUR ---
Patient is sitting up in bed and alert. He is very pleasant and tells many captivating stories. He talks about the medical event that led to his admission to the hospital and the plan of care going forward. He shares about his younger days in [place] and the wonderful history of the town and the people in it. He is energized by his own story. 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 I provided therapeutic listening and a calming presence. Patient responded well
[2024-06-10 16:51] VITALS: BP 130/69
--- NOTE | 2024-06-10 17:56 | NUR ---
PT ARRIVED IN THE UNIT FORM ERD VIA GURNEY PT WAS ABLE TO STAND AND TRANSFER, PT A LITTLE UNSTEADY ON GAIT, SBA FOR TRANSFERS. PT IS HERE FOR CHEST PAIN, TROPONIN TRENDS NEGATIVE, RESTING PORTION OF STRESS TEST WAS DONE THIS AFTERNOON STRESS PORTION IN AM, TO HOLD BREAKFAST IN THE MORNING. PT HAS 2/10 CHEST PAIN UPON ARRIVAL THAT RESOLVED BY THE END OF SHIFT, NITRO PASTE WAS REMOVED PRIOR TO STRESS TEST. PT ALERT AND ORIENTED X3-4 FORGETFUL AT TIMES ABLE TO MAKE NEEDS KNOWN. VITALS HRR SR WITH FIRS DEGREE HB 90'S, SBP 130-150'S, SATS ABOVE 95% ON RA, AFEBRILE. PT HAS A LARGE BM THIS SHIFT PT ABLE TO USE THE BATHROOM AMBULATED WALKER. PT HAS BEEN CALLING APPROPRIATELY. NO OTHER ISSUES REPORTED FOR THE SHIFT WILL REPORT TO ONCOMING SHIFT
[2024-06-10 20:17] VITALS: BP 145/75
[2024-06-10] MEDS ORDERED: Atorvastatin 40 MG Tab PO SCH (21:00)
[2024-06-10 23:46] VITALS: BP 169/83
[2024-06-11 03:43] VITALS: BP 156/77
[2024-06-11 04:33] LABS: Hematocrit 43.1 % (37.0-53.0); Hemoglobin 15.5 g/dL (13.5-17.5); Mean Corpuscular HGB 33.3 pg (26.0-34.0); Mean Corpuscular Volume 93 fL (80-100); Mean Platelet Volume 8.6 fL (9.1-12.4); Platelet Count 309 K/mm3 (150-400); RDW Coefficient Variation 13.2 % (11.7-14.2); RDW Standard Deviation 44.1 fL (35.1-46.3); Red Blood Cell Count 4.66 M/mm3 (4.30-5.90); White Blood Cell Count 9.95 K/mm3 (4.00-11.30)
[2024-06-11 05:03] LABS: Anion Gap 11 mmol/L (3-11); Blood Urea Nitrogen 19 mg/dL (8-24); Bun/Creatinine Ratio 19.6 (12.0-20.0); CO2, Blood 26 mmol/L (21-32); Calcium, Blood 8.7 mg/dL (8.5-10.1); Chloride, Blood 107 mmol/L (98-108); Cholesterol 162 mg/dL (50-200); Creatinine, Blood 0.97 mg/dL (0.60-1.20); Glomerular Filtration Rate 78 (60-); Glucose, Blood 108 mg/dL (70-99); HDL Cholesterol 81 mg/dL (>39); LDL/HDL RATIO 0.8; Low Density Lipoprotein Chol 65 mg/dL (0-110); Potassium, Blood 3.6 mmol/L (3.5-5.5); Sodium, Blood 140 mmol/L (136-145); Triglycerides 78 mg/dL (30-160); Very Low Density Lipoprot Chol 15 mg/dL (6-32)
--- NOTE | 2024-06-11 06:24 | NUR ---
shift summary VSS, AFEBRILE, PT RESTLESS ALL SHIFT, UP TO SIDE OF BED NUMEROUS TIMES, UP TO CHAIR, C/O BLE TWITCHING AND UNCOMFORTABLE, PT HAD CAREGIVER BRING MENTHOL RUB THAT HE STATES HAS ALWAYS WORKED WHEN HIS LEGS DO THIS, MENTHOL APPLIED TO BLE X4 WITHOUT RELIEF, SCD SLEEVES REMOVED AND REPLACED NUMEROUS TIMES, PT DID NOT SLEEP THIS SHIFT,NPO SINCE MIDNIGHT FOR STRESS TEST THIS AM, PT DID STATE THIS AM THAT HE IS NERVOUS ABOUT THE TEST AND READY TO GO HOME. RATED CHEST PAIN AT 2 START OF SHIFT AND DENIES PAIN AT THIS TIME , DENIES SOB, SIDE RAILS UP X2 CALL LIGHT IN REACH, BED ALARM ON
[2024-06-11 08:20] VITALS: BP 125/99
[2024-06-11] MEDS ORDERED: Caffeine Citrated 60 MG/3 ML Vial ONE (08:43)
[2024-06-11] MEDS ORDERED: Regadenoson 0.4 MG/5 ML SYRINGE ONE (08:43)
[2024-06-11] MEDS ORDERED: Potassium Chloride 20 MEQ TabCR PO ONE (08:55)
[2024-06-11] MEDS ORDERED: Torsemide 20 MG TAB PO SCH (09:00)
[2024-06-11] MEDS ORDERED: Enoxaparin 40 MG/0.4 ML SYR SC SCH (09:00)
[2024-06-11] MEDS ORDERED: Metoprolol Succinate 25 MG TABCR PO SCH (09:00)
--- NOTE | 2024-06-11 09:01 | NUR ---
PATIENT FINISHED STRESS TEST AND IS ABLE TO EAT BREAKFAST AND HAVE COFFEE, WILL DO PHOTOS AROUND 10AM.
--- NOTE | 2024-06-11 10:30 | NUR ---
PATIENT RETRUNED FROM IMAGING AND IS BACK IN BED. HAS THE BED ALARM ON AND IS WATCHING TV.
[2024-06-11 12:01] VITALS: BP 135/79
[2024-06-11] MEDS ORDERED: DOCU100 PO (14:18)
[2024-06-11] MEDS ORDERED: AZIT500 PO (14:18)
[2024-06-11] MEDS ORDERED: MIRALAX17 GM PO (14:19)
--- NOTE | 2024-06-11 14:30 | NUR ---
PATIENT IS ALERT AND ORIENTED X4 AND WAS WHEELED OUT VIA WHEELCHAIR TO HIS FRIEND WHO WAS HIS RIDE. TOOK ALL OF HIS BELONGINGS AND WAS AWARE OF HIS NEW MEDICATIONS THAT WERE START[facility]. PATIENT UNDERSTOOD TO FOLLOW UP WITH HIS PCP.
== END 2024-06-11 16:12 | disposition home or self-care (01) ==
LOC: ER 09:29 → PCU 11:29
PROVIDERS: Emergency Medicine; ADMIT Internal Medicine
DX: R07.89 Other chest pain (principal); I10 Essential (primary) hypertension; E78.5 Hyperlipidemia, unspecified; K21.9 Gastro-esophageal reflux disease without esophagitis; J44.9 Chronic obstructive pulmonary disease, unspecified; N40.0 Benign prostatic hyperplasia without lower urinary tract symptoms; K59.00 Constipation, unspecified; Z87.891 Personal history of nicotine dependence; Z88.8 Allergy status to other drugs, medicaments and biological substances; Z79.82 Long term (current) use of aspirin; Z79.899 Other long term (current) drug therapy
CPT/HCPCS: 36415; 71045; 78452; 80048; 80053; 80061; 83880; 84145; 84484; 85025; 85027; 93005; 93010; 93017; 93306; 96372; 96374; 96375; 96376; 99285-25; A9270; A9500; G0378; J0696; J0706; J1650; J1940; J2785

== ENCOUNTER 2024-10-29 20:05 | Emergency (ER) | payer MEDICARE ==
[~2024-10-29] VITALS: Ht 170.2 cm; Wt 68.0 kg
[~2024-10-29 20:05] MED LIST changes: +AZIT500 PO; +DOCU100 PO; +MIRALAX17 GM PO
[2024-10-29] MEDS ORDERED: Ipratropium/Albuterol SulF 2.5-0.5MG/3 ML Amp INH ONE (20:35)
[2024-10-29] MEDS ORDERED: MethylPREDNISolone Sod Succ 125 MG Vial IV ONE (20:35)
[2024-10-29 20:43] LABS: BASOPHILS ABSOLUTE AUTO 0.04 K/mm3 (0.00-0.23); BASOPHILS PERCENT AUTO 0 % (0-2); EOSINOPHILS ABSOLUTE AUTO 0.22 K/mm3 (0.00-0.68); EOSINOPHILS PERCENT AUTO 2 % (0-6); Hematocrit 42.2 % (37.0-53.0); IMMATURE GRAN ABSOLUTE AUTO 0.02 K/mm3 (0.00-0.10); IMMATURE GRAN PERCENT AUTO 0 % (0-1); LYMPHOCYTES ABSOLUTE AUTO 1.18 K/mm3 (0.84-5.20); LYMPHOCYTES PERCENT AUTO 12 % (21-46); MONOCYTES ABSOLUTE AUTO 1.07 K/mm3 (0.16-1.47); MONOCYTES PERCENT AUTO 11 % (4-13); Mean Corpuscular HGB 32.7 pg (26.0-34.0); Mean Corpuscular HGB Conc 35.5 g/dL (31.5-36.5); Mean Corpuscular Volume 92 fL (80-100); Mean Platelet Volume 8.7 fL (9.1-12.4); NEUTROPHILS ABSOLUTE AUTO 7.54 K/mm3 (1.96-9.15); NEUTROPHILS PERCENT AUTO 75 % (41-73); Platelet Count 350 K/mm3 (150-400); RDW Coefficient Variation 13.2 % (11.7-14.2); RDW Standard Deviation 44.5 fL (35.1-46.3); Red Blood Cell Count 4.59 M/mm3 (4.30-5.90); White Blood Cell Count 10.07 K/mm3 (4.00-11.30)
[2024-10-29 20:52] LABS: Bun/Creatinine Ratio 21.1 (12.0-20.0); Calcium, Blood 9.1 mg/dL (8.5-10.1); Creatinine, Blood 0.85 mg/dL (0.60-1.20); Potassium, Blood 3.5 mmol/L (3.5-5.5)
[2024-10-29] MEDS ORDERED: Furosemide 10 MG/ML 4ML Vial IV ONE (21:30)
[2024-10-29 21:33] LABS: Influenza A, PCR NEGATIVE (NEGATIVE); Influenza B, PCR NEGATIVE (NEGATIVE); Resp Syncytial Virus, PCR NEGATIVE (NEGATIVE); SARS-Cov-2 (COVID-19) PCR, MMC NEGATIVE (NEGATIVE)
[2024-10-29] MEDS ORDERED: HydrALAZINE HCl 20 MG / ML 1ML Vial IV ONE (21:55)
[2024-10-29] MEDS ORDERED: FURO20 PO (22:21)
[2024-10-29 22:35] VITALS: BP 143/88
== END 2024-10-29 23:06 | disposition home or self-care (01) ==
LOC: ER 20:05
PROVIDERS: Emergency Medicine
DX: I16.0 Hypertensive urgency (principal); I10 Essential (primary) hypertension; J81.1 Chronic pulmonary edema; R06.02 Shortness of breath; R74.8 Abnormal levels of other serum enzymes; F43.10 Post-traumatic stress disorder, unspecified; J44.9 Chronic obstructive pulmonary disease, unspecified; K21.9 Gastro-esophageal reflux disease without esophagitis; E78.5 Hyperlipidemia, unspecified; Z87.891 Personal history of nicotine dependence; Z79.51 Long term (current) use of inhaled steroids; Z79.82 Long term (current) use of aspirin; Z88.8 Allergy status to other drugs, medicaments and biological substances
CPT/HCPCS: 0241U; 71045; 80048; 83880; 84484; 85025; 93005; 93010; 94640; 94664; 96374; 96375; 99284-25; J1938; J1940; J2919